=== PATIENT | male | born 1975 | race Caucasian/White ===

== ENCOUNTER 2018-02-15 12:52 | Emergency (ER) | payer OTHER, SELFPAY ==
[2018-02-15 12:53] VITALS: BP 165/81; PULSE 82; RESP 14; TEMP 36.5; BMI 31.1
--- NOTE | 2018-02-15 13:14 | ED.VISSUMM ---
- ER Visit Summary Date of Service: 02/15/18 Chief Complaint: Headache History of Present Illness: The patient is a [address] Granados. He reports that he has a headache that began earlier today is gradually gotten worse. It is a throbbing pain it is worse in the occiput seems to radiate over to the frontal location. 7 out of 10 severity. Is worsened by smoking. He is taken Aleve without relief. She had nausea without vomiting. He denies any photophobia. No recent injury to his head. No fever. Patient reports that he had similar problems when his blood pressure was high. He has been on losartan 25 mg once a day for the past 6 months and has not missed any doses. He reports that he noticed yesterday he has bilateral leg swelling after working for 4 hours which is unusual for him. He reports that it decreased overnight. He also complains of generalized weakness. Physical Examination: Vitals: Stable. Afebrile. General: Well-nourished and well-developed. Head: Normocephalic atraumatic. Neck: Supple, no lymphadenopathy. No JVD. Nontender. Cardiovascular: Regular rate and rhythm. No murmurs. Respiratory: No respiratory distress. Clear to auscultation bilaterally. Abdominal: Soft, nontender, nondistended, normal bowel sounds. No guarding, rebound, or peritoneal signs. Back: Nontender. Extremities: Nontender, trace edema of his lower extremity bilaterally. Skin: Normal color, no rash. Neurologic: Alert and oriented ?3. Cranial nerves II through XII are intact. Normal strength and sensation. Psych: Normal affect. Test Results: CBC is marked for hematocrit 39.0 and lymphocytes of 18. Chem-7 is more for chloride 108 and calcium of 8.4. Emergency Department Course and Treatment: Patient had an IV placed. He was given a dose of Toradol and Reglan IV. He is resting comfortably. Treatment Plan: Patient be discharged instructions push fluids. Follow-up his primary care physician 1 to days if not improving. Return to the emergency department for any worsening symptoms. Disposition: To home in improved and stable condition. Impression: 1. Cephalgia. This note was generated with [employer] dictation software. It may contain incorrect words, spelling, and punctuation that were not noted in review of the chart prior to signing ED Disposition - Plan for ED Patient: Chief Complaint: Headache Instructions: ED Cephalgia Unspecified Referrals: Stevenson Godfrey MD [Primary Care Provider] - 1-2 Days if not improving
[2018-02-15 14:10] LABS: Absolute Lymphocyte Count 0.83 X10^3/ul (0.83-4.51); Absolute Neutrophil Count 3.1 X10^3/uL (2.0-7.7); Basophil# 0.01 X10^3/uL; Basophil% 0.2 % (0-1); Eosinophil# 0.18 X10^3/uL; Eosinophils% 3.9 % (0-5); Hemoglobin 14.1 g/dl (13.0-16.5); Lymphocyte # 0.83 X10^3/ul (4.0); Lymphocyte % 18.2 % (19-41); Mean Corp Hgb Conc 36.2 g/gl (32-36); Mean Corpuscular Hgb 30.9 pg (27.0-32.0); Mean Corpuscular Volume 85.3 fL (80-94); Mean Platelet Vol. 9.9 fl (6.2-12.0); Monocyte# 0.39 X10^3/uL; Monocyte% 8.6 % (0-10); Neutrophil # 3.14 X10^3/uL (2.7-7.7); Neutrophil % 68.9 % (47-70); Platelet Count 262 K/mm3 (150-450); RBC Distribution Width CV 12.1 % (11.6-14.6); RBC Distribution Width SD 36.6 fl (35.1-43.9); Red Blood Count 4.57 M/mm3 (4.6-6.2); White Blood Count 4.6 K/mm3 (4.4-11.0)
[2018-02-15 14:15] LABS: POSITIVE COUNT NO; POSITIVE DIFFERENTIAL NO; POSITIVE MORPHOLOGY NO
[2018-02-15 14:19] LABS: Anion Gap 7 (5-15); BUN 9 mg/dL (7-18); Calcium,Total 8.4 mg/dL (8.5-10.1); Chloride 108 mmol/L (98-107); EST Glomerular Filtration Rate 99 mL/min (>60); Est Glom Filt Rate - Afr Amer 120 mL/min (>60); Estimated Creatinine Clearance 103.44 ml/min; Glucose 92 mg/dL (74-106); Potassium 4.1 mmol/L (3.5-5.1); Sodium Level 141 mmol/L (136-145)
[2018-02-15] MEDS: Metoclopramide 10 MG/2 ML Vial IV (14:19)
[2018-02-15] MEDS: Ketorolac 30 MG/ML Syringe IV (14:19)
[2018-02-15] MEDS: 0.9% Normal Saline 1,000 ML 999 ML IV (14:19)
[2018-02-15 14:24] VITALS: BP 138/87; PULSE 72; RESP 14; O2SAT 96
[2018-02-15 15:11] VITALS: BP 130/75; PULSE 65; RESP 16; O2SAT 97
== END 2018-02-15 15:12 | disposition home or self-care (01) ==
LOC: ED 13:27
PROVIDERS: Emergency Provider Emergency Medicine; Family Provider Family Medicine; PCP Family Medicine
DX: R51 Headache (principal); I10 Essential (primary) hypertension; E11.9 Type 2 diabetes mellitus without complications; K50.90 Crohn's disease, unspecified, without complications; Z79.84 Long term (current) use of oral hypoglycemic drugs; Z79.899 Other long term (current) drug therapy; Z72.0 Tobacco use
CPT/HCPCS: 80048; 85025; 96361; 96374; 96375; 99285; J7030